=== PATIENT | female | born 1935 | race Caucasian/White ===

== ENCOUNTER 2016-10-16 09:45 | Outpatient (CLI) | payer MEDICARE, OTHER ==
--- NOTE | 2016-10-16 14:17 | Ultrasound Report ---
LEFT BREAST ULTRASOUND: 10/16/2016 CLINICAL INDICATION: Tender mass outer left breast. TECHNIQUE: Real-time scanning was performed with telesales representative static images obtained. FINDINGS: Ultrasound of the tender palpable abnormality identified by the patient was performed. At this site, there is a 2.0 x 1.3 x 1.1 cm hypoechoic irregular nodule, with some vascularity and po sterior acoustic shadowing. The appearance is suspicious. Scanning of the left axilla does demonstrat e an abnormal 9 x 8 x 6 mm node. Sampling of both the palpable abnormality and left axillary node is recommended. IMPRESSION: SUSPICIOUS ABNORMALITIES. RECOMMENDATION: THE PALPABLE ABNORMALITY APPEARS AMENABLE TO ULTRASOUND-GUIDED CORE NEEDLE BIOPSY. CO NTEMPORANEOUS SAMPLING OF THE PROMINENT LEFT AXILLARY LYMPH NODE IS ALSO RECOMMENDED. BIRADS CATEGORY 4-SUSPICIOUS ABNORMALITY. Results and recommendations were discussed with the patient at the time of the examination, and pacheco d to the office of [facility], on 10/16/2016. Biopsy is scheduled for 10/23/2016 at 9:45 a.m. JOB #: [id number] EXT JOB #:
--- NOTE | 2016-10-16 16:25 | Mammography Report ---
DIGITAL DIAGNOSTIC BILATERAL MAMMOGRAM: 10/16/2016 CLINICAL INDICATION: Tender palpable abnormality left outer breast. The patient's previous mammograms were somewhere in [place] many years ago. This will serve as a n ew baseline. TECHNIQUE: Bilateral CC and MLO views, bilateral laterally exaggerated craniocaudal views, left true lateral view. FINDINGS: The breasts demonstrate scattered fibroglandular densities bilaterally. In the left upper outer posterior breast, correlating with the palpable abnormality, there is a 2 cm density, with some irregular margins. Additionally, there is a prominent left axillary lymph node noted. No mammographi maycol suspicious findings are seen in the right breast. Coarse, typically benign calcifications are p resent. Please also refer to left breast ultrasound of the same day. IMPRESSION: SUSPICIOUS ABNORMALITY, WITH A SOLID NODULE ON ULTRASOUND CORRELATING WITH THE MAMMOGRAP HIC ABNORMALITY AND A PROMINENT LEFT AXILLARY LYMPH NODE. RECOMMENDATION: BIOPSY. THE NODULE APPEARS AMENABLE TO ULTRASOUND-GUIDED CORE NEEDLE BIOPSY. CONTEMPO RANEOUS SAMPLING OF THE LEFT AXILLARY LYMPH NODE IS ALSO RECOMMENDED. BIRADS CATEGORY 4-SUSPICIOUS ABNORMALITY. Results and recommendations discussed with the patient at the time of the examination, and called to [facility], on 10/16/2016. Biopsy is scheduled for 10/23/2016 at 9:45 a.m. STANDARD QUALIFYING STATEMENTS 1. This examination was reviewed with the aid of Computer-Aided Detection (CAD). 2. A negative or benign imaging report should not delay biopsy if clinically suspicious findings are present. Consider surgical consultation if warranted. More than 5% of cancers are not identified by i samreen. 3. Dense breasts may obscure an underlying neoplasm. JOB #: [id number] EXT JOB #:[id number]
== END 2016-10-16 09:46 | disposition home or self-care (01) ==
LOC: DI 09:45
PROVIDERS: ATTEND Nurse Practitioner Family
DX: N63 Unspecified lump in breast (principal); R59.0 Localized enlarged lymph nodes
CPT/HCPCS: 76642; G0204; 77066

== ENCOUNTER 2016-10-23 08:45 | Outpatient (CLI) | payer MEDICARE, OTHER ==
--- NOTE | 2016-10-23 13:09 | Ultrasound Report ---
CORE BIOPSY OF THE LEFT BREAST UNDER ULTRASOUND GUIDANCE: 10/23/2016 CLINICAL HISTORY: The patient has a known palpable mass at the 3 o'clock position of the left breast. FINDINGS: A PAR conference was held and an informed consent was obtained. The patient's left breast was sterilely prepped with Betadine and Chloraprep. Sterile technique was used throughout the exam. 10 mL of 1% buffered Xylocaine was placed in the skin and subcutaneous tissues of the breast. 8 mL of 1% Xylocaine with epinephrine was placed in the skin and subcutaneous tissues of the left breast. A small skin incision was made with a #11 scalpel. With a clamp , the tissues down to the lesion were softened. Under ultrasound guidance, using a Tourjivegic coaxial 14-gauge biopsy needle, three core biopsies were obtained of the lesion in question. The first core biopsy was excellent. The second core biopsy was minimal. The third core biopsy was satisfactory. These biopsy specimens were placed in formalin. The patient had so much pain with the biopsy that she would not allow a surgical clip to be placed in the lesion. Following the biopsy, the incision site was cleansed with Chloraprep, covered with a 4x4 and Tegaderm. IMPRESSION: CORE BIOPSY OF A PALPABLE MASS AT THE 3 O'CLOCK POSITION OF THE LEFT BREAST UNDER ULTRASOUND GUIDANCE. ONE EXCELLENT CORE BIOPSY SPECIMEN WAS OBTAINED AND ONE ADEQUATE CORE BIOPSY SPECIMEN WAS OBTAINED THESE CORES WERE PLACED IN FORMALIN. BECAUSE THE PATIENT ENCOUNTERED PAIN WITH THE BIOPSY, SHE DECIDED NOT TO ALLOW A SURGICAL CLIP TO BE PLACED AT THE SITE OF THE BIOPSY. JOB #: [id number] EXT JOB #: [id number]
--- NOTE | 2016-10-23 13:17 | Ultrasound Report ---
NEEDLE ASPIRATION BIOPSY UNDER ULTRASOUND GUIDANCE OF AN ENLARGED LYMPH NODE IN THE TAIL OF THE LEFT BREAST: 10/23/2016 CLINICAL HISTORY: The patient has a palpable left breast mass in the 3 o'clock position and an enlarg ed lymph node in the tail of the left breast left axilla. FINDINGS: A PAR conference was held and informed consent was obtained. The patient's left breast and axillary region were sterilely prepped and draped with Betadine and Chloraprep. Sterile technique wa s used throughout the exam. Under ultrasound guidance, the enlarged lymph node in the tail of the lef t breast was localized and two needle aspiration biopsies under ultrasound guidance with a 22-gauge 1 .5-inch, biopsy needle was done. The needle aspiration samples that were obtained were placed into cy tosine solution and sent for pathological analysis. The needle aspiration biopsy was done because the patient was very hesitant to undergo a core biopsy of this lymph node. She encountered too much pain with the core biopsy of the palpable breast mass immediately preceding this aspiration biopsy to all ow a core biopsy of the lymph node in question. IMPRESSION: NEEDLE ASPIRATION BIOPSY UNDER ULTRASOUND GUIDANCE WAS DONE OF AN ENLARGED LYMPH NODE IN THE TAIL OF THE LEFT BREAST LEFT AXILLA. JOB #: [id number] EXT JOB #:[id number]
[2016-10-23 13:55] VITALS: BP 118/59
[2016-10-23] MEDS ORDERED: BUFFERED LIDOCAINE 10 ML SYRINGE IU ONE (17:19)
[2016-10-23] MEDS ORDERED: BUPIVACAINE 0.5%-EPI 1:200000 PF 30 ML VIAL SUBQ ONE (17:19)
== END 2016-10-23 08:46 | disposition home or self-care (01) ==
LOC: DI 08:45
PROVIDERS: ATTEND Nurse Practitioner Family
DX: C50.612 Malignant neoplasm of axillary tail of left female breast (principal); Z17.1 Estrogen receptor negative status [ER-]; R59.0 Localized enlarged lymph nodes
CPT/HCPCS: 10022; 19083; 76942; 88173; 88305; 88360

== ENCOUNTER 2017-02-24 09:24 | Outpatient (CLI) | payer MEDICARE, OTHER ==
--- NOTE | 2017-02-25 08:21 | XRAY Report ---
TWO-VIEW CHEST: 02/24/2017 COMPARISON STUDY: None. INDICATION: Cough. FINDINGS: Right thoracic port is noted with the tip overlying the superior vena cava. There is focal patchy opacity about the left lower lobe. No pneumothorax or pleural effusion. Mediastinum appears otherwise unremarkable. IMPRESSION: PATCHY OPACITY ABOUT THE LEFT LOWER LOBE SUGGESTS PNEUMONIA. CORRELATE CLINICALLY. JOB #: [id number] EXT JOB #:[id number]
== END 2017-02-24 09:25 | disposition home or self-care (01) ==
LOC: DI.S 09:24
PROVIDERS: ATTEND Nurse Practitioner Family
DX: R91.8 Other nonspecific abnormal finding of lung field (principal); Z95.828 Presence of other vascular implants and grafts
CPT/HCPCS: 71020

== ENCOUNTER 2017-03-23 10:03 | Outpatient (CLI) | payer MEDICARE, OTHER ==
--- NOTE | 2017-03-23 12:32 | XRAY Report ---
TWO VIEW CHEST: 03/23/2017 CLINICAL INDICATION: Pneumonia. COMPARISON: 02/24/2017. FINDINGS: Frontal and lateral views of the chest demonstrate a normal cardiac silhouette. The right jugular port is stable. The previously seen patchy left basilar infiltrate has resolved. No effusion or pneumothorax is present. IMPRESSION: RESOLUTION OF PATCHY LEFT BASILAR INFILTRATE. JOB #: [id number] EXT JOB #:[id number]
== END 2017-03-23 10:04 | disposition home or self-care (01) ==
LOC: DI.S 10:03
PROVIDERS: ATTEND Physician Assistant
DX: J18.9 Pneumonia, unspecified organism (principal)
CPT/HCPCS: 71020

== ENCOUNTER 2017-12-16 11:32 | Outpatient (CLI) | payer MEDICARE, OTHER ==
--- NOTE | 2017-12-16 13:53 | XRAY Report ---
Procedure Date: 12/16/2017 Accession Number: [id number] / [id number] Procedure: XRS - Chest 2 View X-Ray CPT Code: 40105 FULL RESULT: EXAM: CHEST RADIOGRAPHY EXAM DATE: 12/16/2017 12:03 PM. CLINICAL HISTORY: Bronchitis. COMPARISON: Chest 2 view PA/LAT 03/23/2017 10:16 AM. TECHNIQUE: 2 views. FINDINGS: Lungs/Pleura: Lung volumes are decreased compared to the previous exam. There is no lobar consolidation. There is no pleural effusion or pneumothorax. Mediastinum: Heart and mediastinal contours are unremarkable. Other: Interval removal of a central venous port. Degenerative changes of the right humeral head. No surgical clips projecting over the left breast. IMPRESSION: Decreased lung volumes with no acute cardiopulmonary abnormality. RADIA
== END 2017-12-16 11:33 | disposition home or self-care (01) ==
LOC: DI.S 11:32
PROVIDERS: ATTEND Family Medicine
DX: J20.9 Acute bronchitis, unspecified (principal)
CPT/HCPCS: 71046

== ENCOUNTER 2018-04-14 14:26 | Outpatient (CLI) | payer MEDICARE, OTHER | END 2018-04-14 14:27 | disposition home or self-care (01) | LOC: SC 14:26 | PROVIDERS: ATTEND Nurse Practitioner Family | DX: G47.33 Obstructive sleep apnea (adult) (pediatric) (principal) | CPT/HCPCS: 99204; G0463; 99212 ==

== ENCOUNTER 2018-05-07 19:33 | Outpatient (CLI) | payer MEDICARE, OTHER | END 2018-05-07 19:34 | disposition home or self-care (01) | LOC: SC 19:33 | PROVIDERS: ATTEND Internal Medicine Pulmonary Disease | DX: R06.83 Snoring (principal); G47.61 Periodic limb movement disorder | CPT/HCPCS: 95810 ==

== ENCOUNTER 2018-08-27 13:11 | Outpatient (CLI) | payer MEDICARE, OTHER ==
--- NOTE | 2018-08-27 15:09 | XRAY Report ---
Reason: PAIN RIGHT LEG RIGHT ANKLE Procedure Date: 08/27/2018 Accession Number: [id number] / [id number] Procedure: XR - Ankle 3 View RT CPT Code: FULL RESULT: EXAM: RIGHT ANKLE RADIOGRAPHY EXAM DATE: 08/27/2018 02:03 PM. CLINICAL HISTORY: Pain right leg, right ankle. COMPARISON: None. TECHNIQUE: 3 views. FINDINGS: Bones: The bones are qualitatively osteopenic; this limits evaluation for underlying fractures or masses. No fracture is detected. Joints: Normal. No effusion. No subluxations. The ankle mortise is normally aligned. Soft Tissues: Normal. No soft tissue swelling. IMPRESSION: Osteopenia with no fracture or dislocation detected. RADIA
--- NOTE | 2018-08-27 15:11 | XRAY Report ---
Reason: RT KNEE ANKLE PAIN Procedure Date: 08/27/2018 Accession Number: [id number] / [id number] Procedure: XR - Knee 3 View RT CPT Code: FULL RESULT: EXAM: RIGHT KNEE RADIOGRAPHY EXAM DATE: 08/27/2018 02:03 PM. CLINICAL HISTORY: Right knee, ankle pain. COMPARISON: None. TECHNIQUE: 3 views. FINDINGS: Bones: The bones are qualitatively osteopenic; this limits evaluation for underlying fractures or masses. No fracture detected. Joints: There is moderate joint space narrowing of the medial compartment. No joint effusion. No subluxation. Soft Tissues: Mild calcifications of the popliteal artery. IMPRESSION: Osteopenia and degenerative changes as described. RADIA
== END 2018-08-27 13:12 | disposition home or self-care (01) ==
LOC: DI 13:11
PROVIDERS: ATTEND Nurse Practitioner Family
DX: M17.11 Unilateral primary osteoarthritis, right knee (principal); M85.861 Other specified disorders of bone density and structure, right lower leg

== ENCOUNTER 2020-05-21 10:05 | Day surgery (SDC) | payer MEDICARE, OTHER ==
[2020-05-21] MEDS ORDERED: LACTATED RINGERS 1,000 ML IV ONE (10:15)
[2020-05-21] MEDS ORDERED: ceFAZolin 2 GM/50 ML 2 GM/50 ML BAG IV ONE (10:45)
[2020-05-21 11:27] LABS: C. PNEUMONIAE- RESP PCR PANEL NOT DETECTED
[2020-05-21] MEDS ORDERED: LIDOCAINE 2%-EPI 1:100000 20 ML MDV SUBQ ONE ×2 (12:02)
[2020-05-21] MEDS ORDERED: BUPIVACAINE 0.5% PF 30 ML VIAL INFIL ONE ×2 (12:02)
[2020-05-21] MEDS ORDERED: SODIUM CHLORIDE 0.9% 10 ML ONE (12:09)
[2020-05-21] MEDS ORDERED: LIDOCAINE 2%-EPI 1:100000 20 ML MDV ONE (12:09)
[2020-05-21] MEDS ORDERED: BUPIVACAINE 0.5% PF 30 ML VIAL ONE (12:09)
[2020-05-21] MEDS ORDERED: PROPOFOL 500 MG/50 ML 500 MG/50 ML VIAL ONE (12:19)
--- NOTE | 2020-05-21 12:38 | ANESTHESIA ---
Pre-Anesthesia VS, & Labs - Diagnosis breast cancer - Procedure port placement Vital Signs: Temp Pulse Resp BP Pulse Ox 36.5 C 68 14 105/68 96 05/21/20 11:10 05/21/20 11:10 05/21/20 11:10 05/21/20 11:10 05/21/20 11:10 Height: 5 ft 2 in Weight (kg): 56.8 kg Body Mass Index: 22.8 BMI Classification: Healthy weight - NPO >8 hours - Is Patient ?: No Home Medications and Allergies Cholecalciferol (Vitamin D3) [Vitamin D3] 10 mcg PO DAILY 05/18/20 Multivitamin [Daily Multiple Vitamin] 1 each PO DAILY 05/18/20 Ondansetron [Ondansetron Odt] 8 mg PO Q8HR PRN 05/18/20 Allergies/Adverse Reactions: Allergies Allergy/AdvReac Type Severity Reaction Status Date / Time No Known Drug Allergies Allergy Verified 05/18/20 11:54 Anes History & Medical History - Anesthetic History Anesthesia Complications: reports: No previous complications - Medical History Cardiovascular: reports: None Pulmonary: reports: None Gastrointestinal: reports: None Urinary: reports: None Musculoskeletal: reports: None Endocrine/Autoimmune: reports: None Skin: reports: None History of Cancer?: No - Surgical History Orthopedic: Knee replacement Exam General: Alert Dental: WNL Mouth Opening: Can't Open Mouth Neck Mobility: Normal Mallampati classification: II Thyromental Distance: greater than 6 cm Respiratory: Lungs clear Cardiovascular: Regular rate Mental/Cognitive Status: Alert/Oriented X3 Plan Anesthesia Type: MAC Consent for Procedure(s) Verified and Reviewed: Yes Code Status: Attempt Resuscitation ASA classification: 2-Mild systemic disease Is this case an emergency?: No
--- NOTE | 2020-05-21 13:41 | OPERATIVE REPORT ---
Operative Report - General Procedure Date: 05/21/20 Planned Procedure: Right subclavian port placement Pre-Op Diagnosis: Recurrent metastatic breast cancer Procedure Performed: Right subclavian port placement Post Op Diagnosis: Recurrent metastatic breast cancer - Procedure Note Primary Surgeon: Mary Anesthesia Provider: KOREY Guerrero Anesthesia Technique: Local, MAC Estimated Blood Loss (mL): 5 Findings: Port in good position in the SVC Complications: None apparent - Other Other Information/Narrative: After obtaining informed consent, the patient is brought to the operating room and placed in supine position on the operating table. Following successful induction of sedation with monitored anesthesia care and appropriate padding of all bony prominences, the left chest and neck were prepped and draped in the standard surgical fashion. A timeout was held per scope protocol. All elements of the surgical safety checklist were followed before, during, and after the procedure. Following infiltration with local anesthetic to create a field block, the right subclavian vein was accessed in the deltopectoral groove. The J-wire was gently placed into the vein. Fluoroscopy was used to confirm the position of the wire and in the subclavian vein. We anesthetized the existing healed scar in the area around it for placement of the port itself. An incision was created here and carried down through the skin and subcutaneous tissue. A pocket was created with blunt dissection. The port tubing was attached to the tunneling device and passed from the access site of the vein into the pocket. It was trimmed to an appropriate length and the port attached. The port was sewn into place in the pocket. The dilator and introducer were then passed over the J-wire that was in the subclavian vein. The J-wire and dilator were removed leaving only the introducer. The tubing was then passed through the introducer and the introducer cracked and removed per senior program planner's directions. The port was then checked for function and flushed and purvi easily. Additional local anesthetic was applied to the chest wall. The port pocket was closed with interrupted Vicryl sutures and Monocryl stitches were placed in both skin incision sites. All sponge, needle, and instrument counts were correct at the conclusion of the case. Chest x-ray in the postanesthesia care unit revealed the port in good position in the superior vena cava without evidence of pneumothorax.
[2020-05-21] MEDS ORDERED: SODIUM CHLORIDE 0.9% 200 ML IV ONE (13:52)
[2020-05-21 14:25] VITALS: BP 120/61
--- NOTE | 2020-05-21 15:00 | XRAY Report ---
PROCEDURE: Post Port Placement 1V CXR INDICATIONS: RIGHT PORT TECHNIQUE: One view of the chest was acquired. FINDINGS: Surgical changes and devices: Port-A-Cath has been placed from right-sided approach extending into th e distal SVC. Lungs and pleura: No pleural effusions or pneumothorax. Lungs are abnormal, with an interstitial pr ominence perhaps reflecting a prior smoking history. Cardiomegaly and acute CHF is not found. Focal r adiodensity is seen at the left lower lobe with the elevation of the left hemidiaphragm mild in sever ity but contributing to lung base atelectasis.. Mediastinum: Mediastinal contours appear normal. Heart size is normal. Bones and chest wall: No suspicious bony lesions. Overlying soft tissues appear unremarkable. IMPRESSION: No pneumothorax after Port-A-Cath placement with tip in normal position. Interstitial prominence, pos sible prior smoking history. Right lower lung appears clear, left lower lobe appears mildly infiltrat ed potentially by pneumonia. Mild elevation of the left diaphragm. Reviewed by: Gustavo Chinchilla MD on 05/21/2020 2:58 PM PST Approved by: Gustavo Chinchilla MD on 05/21/2020 2:58 PM PST Station ID: [id number]
--- NOTE | 2020-05-21 15:09 | XRAY Report ---
PROCEDURE: OR Port-A-Cath INDICATIONS: PORT PLACEMENT TECHNIQUE: Intraoperative evaluation during the placement of Port-A-Cath was performed. COMPARISON: Port-A-Cath catheter from right-sided approach is seen extending into the expected positi on of the distal SVC. FINDINGS: Intraoperative evaluation showing expected course of the Port-A-Cath catheter, prior to termination o f the procedure. IMPRESSION: Normal intraoperative Port-A-Cath positioning. Reviewed by: Gustavo Chinchilla MD on 05/21/2020 3:08 PM PST Approved by: Gustavo Chinchilla MD on 05/21/2020 3:08 PM PST Station ID: [id number]
--- NOTE | 2020-05-21 15:30 | ANESTHESIA POST OP EVALUATION ---
Anesthesia Post Eval - Post Anesthesia Eval Vitals: Last Vital Signs Temp 36.8 C 05/21/20 14:15 Pulse 74 05/21/20 14:15 Resp 16 05/21/20 14:15 BP 120/61 05/21/20 14:15 Pulse Ox 98 05/21/20 14:15 CV Function Including HR & BP: positive: Stable Pain Control: positive: Satisfactory Nausea & Vomiting: positive: Negative Mental Status: positive: Patient Participates Respiratory Status: Airway Patent Hydration Status: Satisfactory
== END 2020-05-21 10:06 | disposition home or self-care (01) ==
LOC: SDS 10:05
PROVIDERS: ATTEND Surgery
DX: C50.911 Malignant neoplasm of unspecified site of right female breast (principal); C50.912 Malignant neoplasm of unspecified site of left female breast; Z20.822 Contact with and (suspected) exposure to COVID-19
CPT/HCPCS: 36561; 71045; 87631; C1788; J0690; J7120; 0202U

== ENCOUNTER 2020-06-01 14:30 | Outpatient (CLI) | payer MEDICARE, OTHER ==
--- NOTE | 2020-06-01 18:38 | CONSULTATION NOTE ---
Palliative Care Consultation - Referral Referring Provider: Dr. Rnad Foote Time of Visit: [id number] [place] [facility] [place] Reason: Met Breast Ca/Constipation - Information Sources Records reviewed: Previous records reviewed History/Review of Systems obtained from: Patient, Family (daughter Earline) Exam limitations: No limitations - History of Present Illness Brief History of Present Illness: This is an 84-year-old woman who has had 3 episodes now of breast cancer. 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 Unfortunately her PET/CT scan has evidence of metastasis, and she is receiving chemotherapy PET/CT 04/18/2020 showed multiple hypermetabolic mediastinal and bilateral hilar lymph nodes, and several hypermetabolic left axillary lymph nodes. And an ill-defined hypermetabolic thickening involving the left pectoralis is muscular image. She does have a palpable small 1 cm node on exam, plus tenderness in her left axilla. She is receiving her third round of chemotherapy, she has next week off. She is currently receiving today paclitaxel and atezolezumab. She has had persistent and accumulating fatigue, as well as difficulty with constipation. She denies any nausea, is eating less than her norm, but has been eating 3 meals a day. She does feel she is getting adequate calories. Patient also has history of right breast IDC [id number] ER/MR [place] positive in August 2018, she did receive a right lumpectomy, and was started on endocrine therapy, received adjuvant radiation therapy on right breast. She has been less than compliant with her anastrozole, and a DEXA scan in March 2019 also showed osteopenia. Patient was encouraged to restart calcium/vitamin D supplementation. Her original diagnosis was in left breast IDC pT2 N1 M0 (stage IIb (triple negative, she received neoadjuvant TC x4, completed 01/23/2017. She went on to get a left lumpectomy/sentinel load biopsy, with residual disease including 5 out of 6 lymph nodes positive. She did receive capecitabine for 2 cycles, though this was discontinued because of intolerance. She did get adjuvant left breast cancer radiation therapy. Patient reports otherwise she is in fairly good health, though she does appears slightly thin, and pale today. She does have some kyphosis/scoliosis, but denies any pain or discomfort other than her left axilla with palpation. Medical/Surgical History - Past Medical History Cardiovascular: reports: None Respiratory: reports: None BUSINESS OFFICE COORDINATOR: reports: Breast cancer Musculoskeletal: reports: Osteopenia Derm: reports: Herpes zoster MRSA Hx?: No - Past Surgical History Ortho: reports: Knee replacement /BUSINESS OFFICE COORDINATOR: reports: Other (bilateral lumpectumy left 2017; right 2018) Cardiovascular: reports: Other (portacath 05/21) Social History - Living Situation Living arrangement: At home Living Situation: With family Support System: Patient had been living independently up to her first diagnosis of breast cancer. Her about 6 to 7 years ago, he was almost 20 years older than her. They had combined family, with multiple children. She lives currently with her daughter, has lived with her since 2017. [place], with her daughter her , 2 children and 2 foster children. She is building a house currently, and is going to live with her granddaughter when completed. She is a Jainism, and did provide her DURABLE POWER OF SHREDDING MACHINE KNIFE CHANGER for healthcare for no blood. Family History - Family History Family History: Mother: , Father: , Sister: Alive and Well Medications/Allergies - Medications Home Medications: Ambulatory Orders Medication Instructions Recorded Confirmed Cholecalciferol (Vitamin D3) 10 mcg PO DAILY 05/18/20 06/04/20 [Vitamin D3] Multivitamin [Daily Multiple 1 each PO DAILY 05/18/20 06/04/20 Vitamin] Ondansetron [Ondansetron Odt] 8 mg PO Q8HR PRN 05/18/20 06/04/20 Lidocaine/Prilocain 2.5% Cream 5 applic TOP BID #1 tube 05/21/20 06/04/20 [Emla 2.5% Cream] Senna [Senokot] 1 - 2 tab PO DAILY PRN MDD 6 tabs 06/04/20 06/04/20 polyethylene glycoL 3350 [Miralax] 17 gm PO DAILY MDD titrate to 06/04/20 0 06/04/20 effect - Allergies Allergies/Adverse Reactions: Allergies Allergy/AdvReac Type Severity Reaction Status Date / Time No Known Drug Allergies Allergy Verified 05/18/20 11:54 Review of Systems - Constitutional Constitutional: reports: Fatigue (persistent since beginning treatment), Weakness, Weight loss. denies: Fever, Chills - Ears, Nose & Throat Ears, Nose & Throat: reports: Dry mouth - Cardiovascular Cardiovascular: reports: Decr. exercise tolerance. denies: Chest pain, Edema - Respiratory Respiratory: denies: Cough, SOB at rest - Gastrointestinal Gastrointestinal: reports: Abdominal pain, Constipation, Poor appetite, Early satiety - Genitourinary Genitourinary: reports: Urgency. denies: Incontinence - Musculoskeletal Musculoskeletal: reports: Stiffness, Muscle weakness - Integumentary Integumentary: reports: Dryness, Hair changes - Neurological Neurological: reports: General weakness. denies: Headache - Psychiatric Psychiatric: reports: Anxiety. denies: Depression - Hematologic/Lymphatic Hematologic/Lymph: Other (is Jehovahs Witness/no blood products) - All Other Systems All Other Systems: reports: Reviewed and negative Physical Exam - Vital Signs Temperature: 97.7 C Pulse Rate: 77 Respiratory Rate: 16 Blood Pressure: 101/53 - Physical Exam General Appearance: positive: No acute distress, Alert, Other (small palpable 1 cm node found in left axilla; area tender to touch) Eyes Bilateral: positive: Normal inspection ENT: positive: No signs of dehydration Neck: positive: Trachea midline. negative: Lymphadenopathy (R), Lymphadenopathy (L) Cardiovascular: positive: Regular rate & rhythm Respiratory: positive: No respiratory distress, Breath sounds nml, Diminished in bases Abdomen: positive: Soft, Tenderness Skin: positive: Pallor, Other (new portacath) Extremities: positive: No pedal edema Neurologic/Psychiatric: positive: Oriented x3, Mood/affect nml, Flat affect Palliative Care - POLST Patient has POLST: No Constipation: Yes, Unmanaged Performance Status: Patient has been independent in her ADLs, though has had decreased activity tolerance. She used to walk around the farm, now is mostly just in the house. She reports this is because of persistent fatigue, and muscle weakness. - Palliative Care Discussion: Kevinunately with her transition from Oscar, who would be health if not seeing the oncologist and are not due to see him for 2 weeks. She is hoping for improvement of her fatigue, and very focused on her constipation. We did discuss in the context of her current situation, would recommend we get her DURABLE POWER OF SHREDDING MACHINE KNIFE CHANGER solidified with Earline as her decision maker, given their shared believes, provided 5 wishes for further discussion.h patient and daughter seem somewhat elusive regarding goals of care regarding the treatment. We did discuss she has metastatic disease, though in this setting can continue to have supportive treatment for managing disease, though is not curative treatment. Impression and Recommendations - Palliative Care Impression: This is an 84-year-old woman with recurrent metastatic breast cancer, receiving chemotherapy. She presents today with persistent and limiting fatigue, as well as constipation. Palliative care introducing role on team, including help with assistance in management of symptoms, advanced care planning, and anticipatory guidance. Recommendations/Counseling Done: 1. Constipation, most likely chemotherapy-induced. Patient has been instructed to initiate MiraLAX 17 g daily/1 capful with 4 ounces of fluid. To decrease if too loose to half capful, and if no BM can increase to twice a day for 48 hours with no BM. Also introduce senna concentrate 8.6, 2-3 tabs of MiraLAX not effective, in 72 hours. Reviewed both with daughter and patient, verbalized understanding. Instructed to DC DOS S. 2. Weight loss. Patient currently managing with small meals, but has had weight loss overall the last few years. Patient does appear quite thin, at high risk for further decline. Reset goal for no further weight loss, encourage small frequent meals and snacks, and adequate hydration. 3. Advanced care planning. We will follow up after oncology appointment regarding goals of care. Will reach out for prognostic/treatment goals. Provided DURABLE POWER OF SHREDDING MACHINE KNIFE CHANGER for healthcare, as well as collected DURABLE POWER OF SHREDDING MACHINE KNIFE CHANGER for healthcare for no blood. We will continue to explore goals of care with patient and family, demonstrating need for further understanding of goals for treatment plan. Will follow up with oncology. Time Spent: 60 minutes with greater than 50% of this done in counseling, setting of rapport, counseling regarding the role of palliative care, and anticipatory guidance
== END 2020-06-01 14:31 | disposition home or self-care (01) ==
LOC: PC 14:30
PROVIDERS: ATTEND Nurse Practitioner Adult Health
DX: Z51.5 Encounter for palliative care (principal); C50.912 Malignant neoplasm of unspecified site of left female breast; Z79.899 Other long term (current) drug therapy; Z85.3 Personal history of malignant neoplasm of breast; M85.80 Other specified disorders of bone density and structure, unspecified site; C77.9 Secondary and unspecified malignant neoplasm of lymph node, unspecified; R53.83 Other fatigue; K59.00 Constipation, unspecified; R63.4 Abnormal weight loss
CPT/HCPCS: 99205

== ENCOUNTER 2020-06-29 15:07 | Outpatient (CLI) | payer MEDICARE, OTHER ==
--- NOTE | 2020-06-29 17:33 | CONSULTATION NOTE ---
Palliative Care Follow Up - Referral Referring Provider: Dr. Rand Foote Time of Visit: [id number] Referral setting: [facility] Referral Reason: Anxiety/Wt. Loss/Recurrent Met Breast CA - Information Sources Records reviewed: Previous records reviewed History/Review of Systems obtained from: Patient, Family (daughter Earline present) Exam limitations: Clinical condition (patient with STM deficits) - History of Present Illness Update Brief HPI Update: This is an 84-year-old woman who presents with recurrent metastatic triple negative breast cancer, mets to lymph nodes in left axilla and left lung. She is receiving Atezolizumab and Paclitaxel, and thus far has been doing fairly well. She does have some numbness at the tips of her fingers, and her fatigue has improving. She reports her weight has been stable at 125, remains quite thin but feels like is eating and drinking adequate amounts of food and fluids. Her daughter confirms this though does feel she needs to be reminded to eat at times. Her constipation is currently under control, and she presents is bright and engaged today. Past Medical History: History of right breast cancer August 2018, with bilateral ectomy and endocrine therapy, as well as adjuvant radiation, osteopenia, left breast cancer in 2016, received neoadjuvant TC x4, with left lumpectomy, sentinel node biopsy with residual disease including 5 out of 6 positive nodes and radiation. Knee replacement and portacath Social History - Living Situation Living arrangement: At home Living Situation: With family Support System: Patient had been living independently up to her first diagnosis of breast cancer in 2017, her about 6 or 7 years ago. They had a combined family with multiple children, she currently lives with her daughter Earline, since 2016. They live on a [place] farm, her daughter and her and 2 children and 2 foster children, it is quite a busy household. She is currently building a house and is going to live there with her granddaughter when completed. She is a Sikhism, and does not accept blood transfusions Medications/Allergies - Medications Home Medications: Ambulatory Orders Medication Instructions Recorded Confirmed Cholecalciferol (Vitamin D3) 10 mcg PO DAILY 05/18/20 06/15/20 [Vitamin D3] Multivitamin [Daily Multiple 1 each PO DAILY 05/18/20 06/15/20 Vitamin] Ondansetron [Ondansetron Odt] 8 mg PO Q8HR PRN 05/18/20 06/15/20 Lidocaine/Prilocain 2.5% Cream 5 applic TOP BID #1 tube 05/21/20 06/15/20 [Emla 2.5% Cream] Senna [Senokot] 1 - 2 tab PO DAILY PRN MDD 6 tabs 06/04/20 06/15/20 polyethylene glycoL 3350 [Miralax] 17 gm PO DAILY MDD titrate to 06/04/20 06/15/20 effect - Allergies Allergies/Adverse Reactions: Allergies Allergy/AdvReac Type Severity Reaction Status Date / Time No Known Drug Allergies Allergy Verified 06/15/20 13:48 Review of Systems - Constitutional Constitutional: reports: Fatigue (improved), Weight stable (125) - Ears, Nose & Throat Ears, Nose & Throat: reports: Hearing loss (mild). denies: Mouth lesions - Cardiovascular Cardiovascular: reports: Decr. exercise tolerance - Respiratory Respiratory: reports: SOB with exertion. denies: Cough, SOB at rest - Gastrointestinal Gastrointestinal: reports: Constipation (intermittent; currently controlled), Nausea (controlled with ondansetron), Early satiety. denies: Vomiting, Reflux/heartburn - Musculoskeletal Musculoskeletal: reports: Stiffness, Muscle weakness - Integumentary Integumentary: reports: Dryness, Hair changes (thinning) - Neurological Neurological: reports: General weakness, Memory problems (mild) - Psychiatric Psychiatric: reports: Depression, Anxiety - Hematologic/Lymphatic Hematologic/Lymph: denies: Anemia, Recurrent infections - All Other Systems All Other Systems: reports: Reviewed and negative Physical Exam - Vital Signs Temperature: 36.3 C Pulse Rate: 76 Respiratory Rate: 18 Blood Pressure: 99/54 - Physical Exam General Appearance: positive: No acute distress, Alert Eyes Bilateral: positive: Normal inspection ENT: positive: No signs of dehydration Neck: positive: Trachea midline Cardiovascular: positive: Regular rate & rhythm Respiratory: positive: No respiratory distress, Breath sounds nml Abdomen: positive: Non-tender, Soft, Nml bowel sounds Skin: positive: Pallor, Dryness Extremities: positive: No pedal edema Neurologic/Psychiatric: positive: Oriented x3, Mood/affect nml, Weakness, Flat affect Palliative Care - POLST Patient has POLST: No Pain: No pain Tiredness/Fatigue: Severe (7-10) Drowsiness/Sedation: Severe (7-10) Nausea: Severe (7-10) Anorexia: Moderate (4-6) Dyspnea: Moderate (4-6) Depression: Moderate (4-6) Anxiety: Moderate (4-6) Feelings of wellbeing/Perceived Quality of Life: Good, Acceptable, Improved Sleep: Sleeps well Constipation: Yes, Intermittent constipation Performance Status: Patient is ambulatory, does use walker at times. She has had more energy over the last few days, does try and do loops in the house to keep her strength up. She is independent in her ADLs, her daughter does oversee meal prep and family supports her with transportation. She is able to shower independently. - Palliative Care Discussion: Patient perceives herself is doing fairly well overall, she does not have any significant anxiety, she is a Sikhism, and oncology trying to dose accordingly. She would like her daughter Earline house go to be her DPOA, they did not bring in her DPOA paperwork. We did discuss in the context of this, may be making arrangements to have completed at next appointment. I have unfortunately not met with the doctor yet, they are very curious as far as prognosis and implications for into the future. Patient feels well supported in her current situation. Feeling encouraged as her lymph node she can feel for herself, does seem to be decreasing in size. Results - Lab Results Lab results reviewed: Yes Impression and Recommendations - Palliative Care Impression: This is a 84 year old woman with recurrent metastatic breast cancer, her third round of breast cancer, receiving chemotherapy, she has improved fatigue, as well as improved constipation. She does feel like she is doing better with her appetite and eating. Palliative care providing support for symptom management, goal to complete advance care planning, and anticipatory guidance Recommendations/Counseling Done: 1. Constipation, most likely chemotherapy-induced. She has been titrating MiraLAX and senna, denies any further problems at this point time. 2. Weight loss. Patient currently managing with small meals, she eats with the family. Feels like she is doing better. May benefit from dietary consult, as they to try and eat natural, want to avoid supplements if possible. Encourage continue to focus on hydration, particularly if having weight loss, make those calorie laden drinks such as hot chocolate. 3. Recurrent metastatic breast cancer. Patient is currently receiving Paclitaxel and atezolezumab. She reports the fatigue was better this time around, does have some numbness in her fingers, but doing fairly well overall. 4. Dry skin. Patient had been using the surgical wash, extracted chemotherapy has significant side effects regarding skin, instructed to use a gentle soap, gentle shampoo, and to moisturize after bathing. Verbalized understanding, recommended Cetaphil/CeraVe 5. Advanced care planning. After much discussion, given the complexity of her current living situation, will make arrangements for DPOA documents at next visit 07/13 with scottary to complete. Will follow up with oncology regarding furt her prognostication, to assist with long-term and short-term goals 45 minutes with greater than 50% of this done in counseling regarding symptom management, advanced care planning, and anticipatory guidance
== END 2020-06-29 15:08 | disposition home or self-care (01) ==
LOC: PC 15:07
PROVIDERS: ATTEND Nurse Practitioner Adult Health
DX: Z51.5 Encounter for palliative care (principal); K59.00 Constipation, unspecified; R63.4 Abnormal weight loss; L85.3 Xerosis cutis; C50.919 Malignant neoplasm of unspecified site of unspecified female breast; C77.3 Secondary and unspecified malignant neoplasm of axilla and upper limb lymph nodes; C78.02 Secondary malignant neoplasm of left lung; Z17.1 Estrogen receptor negative status [ER-]; Z79.899 Other long term (current) drug therapy
CPT/HCPCS: 99215

== ENCOUNTER 2020-07-27 16:06 | Outpatient (CLI) | payer MEDICARE, OTHER ==
--- NOTE | 2020-07-27 16:18 | CONSULTATION NOTE ---
Palliative Care Follow Up - Referral Referring Provider: Dr. 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 She is receiving Abraxane and atezolizumab, so far is done fairly well. Her biggest complaint has been skin changes, though they do look improved from prior, as well as her alopecia. She has some mild numbness to the tips of her fingers, her fatigue has been improving, she reports she has had some weight gain and eating better. This is her third round of treatment with her breast cancers, and tends to be fairly passive. She is a Jain, her yovani brings her much comfort, but does admit to low-level pression. Patient has had her second Covid shot this last , and is hoping this will ease some of her social isolation. She does live in a busy household with her daughter, may in the future move into a house with her granddaughter. She does feel well supported, she denies any anxiety, tends to just defer all decision making to the oncologist. Past Medical History: Patient had neoadjuvant treatment for her initial breast cancer on left side, with left lumpectomy, with residual 5 out of 6 nodes, received radiation. 08/03 she had right breast cancer with right lumpectomy, and started endocrine surgery. As well as right breast radiation January 2019. 03/2020 recurrent metastatic breast cancer noted in her left axilla, with PET scan showing multiple hilar/perihilar/mediastinal nodes. She has osteopenia, knee replacement, and Port-A-Cath Social History - Living Situation Living arrangement: At home Living Situation: With family Support System: Had been living independently after her first diagnosis of breast cancer in 2017, her 6 to 7 years ago, with they had 10 children in combination. She currently lives with her daughter Earline, since 2017, on a small farm. Her daughter and her have 2 children and 2 foster children, is quite a busy household. Her daughter and she share Jain yovani, she is very close to her granddaughter where she is looking at building a house with. Medications/Allergies - Medications Home Medications: Ambulatory Orders Medication Instructions Recorded Confirmed Cholecalciferol (Vitamin D3) 10 mcg PO DAILY 05/18/20 06/15/20 [Vitamin D3] Multivitamin [Daily Multiple 1 each PO DAILY 05/18/20 06/15/20 Vitamin] Ondansetron [Ondansetron Odt] 8 mg PO Q8HR PRN 05/18/20 06/15/20 Lidocaine/Prilocain 2.5% Cream 5 applic TOP BID #1 tube 05/21/20 06/15/20 [Emla 2.5% Cream] Senna [Senokot] 1 - 2 tab PO DAILY PRN MDD 6 tabs 06/04/20 06/15/20 polyethylene glycoL 3350 [Miralax] 17 gm PO DAILY MDD titrate to 06/04/20 06/15/20 effect - Allergies Allergies/Adverse Reactions: Allergies Allergy/AdvReac Type Severity Reaction Status Date / Time No Known Drug Allergies Allergy Verified 06/15/20 13:48 Review of Systems - Constitutional Constitutional: reports: Fatigue (improved), Weight gain (128; 3 pounds over month) - Ears, Nose & Throat Ears, Nose & Throat: reports: Hearing loss (mild). denies: Mouth lesions - Cardiovascular Cardiovascular: reports: Decr. exercise tolerance - Respiratory Respiratory: reports: SOB with exertion. denies: Cough, SOB at rest - Gastrointestinal Gastrointestinal: reports: Early satiety, Good appetite. denies: Constipation (currently controlled), Nausea (controlled with ondansetron), Vomiting, Reflux/heartburn - Musculoskeletal Musculoskeletal: reports: Stiffness, Muscle weakness - Integumentary Integumentary: reports: Dryness, Hair changes ("duck down" alopecia) - Neurological Neurological: reports: General weakness, Memory problems (mild) - Psychiatric Psychiatric: reports: Depression - Hematologic/Lymphatic Hematologic/Lymph: denies: Anemia, Recurrent infections - All Other Systems All Other Systems: reports: Reviewed and negative Physical Exam - Vital Signs Temperature: 36.3 C Pulse Rate: 78 Respiratory Rate: 18 O2 Saturation: 97 Blood Pressure: 119/54 - Physical Exam General Appearance: positive: No acute distress, Alert Eyes Bilateral: positive: Normal inspection ENT: positive: No signs of dehydration Neck: positive: Trachea midline Cardiovascular: positive: Regular rate & rhythm Respiratory: positive: No respiratory distress, Breath sounds nml Abdomen: positive: Non-tender, Soft, Nml bowel sounds Skin: positive: Pallor, Dryness Extremities: positive: No pedal edema Neurologic/Psychiatric: positive: Oriented x3, Mood/affect nml, Weakness, Flat affect Palliative Care - POLST Patient has POLST: No Pain: Severity (1/10) Tiredness/Fatigue: Moderate (4-6) Drowsiness/Sedation: Moderate (4-6) Nausea: Mild (1-3) Anorexia: None Dyspnea: None Depression: Moderate (4-6) Anxiety: None Feelings of wellbeing/Perceived Quality of Life: Excellent, Acceptable, Improved Sleep: Sleeps well Constipation: Yes, Managed Performance Status: Patient is independent in her ADLs, she does walk short distances in the house. She has been doing some progressive ambulation as encouraged. I would put her at a PPS of 70% - Palliative Care Discussion: Patient is very pragmatic in her of approach this, she reports most people do not even lived to 83. She is hoping though for extended quality and quantity of life. We did discuss in the context of her current situation, her symptom burden is low, her fatigue is improving and she is feeling somewhat better. We did complete her DPOA today, with her daughter Earline avelar [phone] as her primary DPOA, with both her daughters as backup. Was able to enlist the notary and complete form. She does feel like she has enough support at this point, she has a good evangelical yovani that supports her in this journey. This is her third round, she is fairly passive. She says she just "trust what the doctors are doing for her". She has been , but still misses her . She reports is a busy household where she is, but feels like she has privacy and can check out if needs to. We did talk about the continuum of care, she did take care of her who was almost 20 years older than her at end-of-life. Counseling provided regarding addressing her questions about hospice and end-of-life care. She is hoping for the best, we also reviewed her current treatment schedule, the plan for ongoing monitoring, and treatment is for control of her disease not for cure. She was appreciative of the information and ability to ask questions. Results - Lab Results Lab results reviewed: Yes Impression and Recommendations - Palliative Care Impression: This is a quiet 84-year-old woman with recurrent metastatic breast cancer, her third round, currently receiving chemotherapy. She is having some persistent fatigue, but feels overall she is doing fairly well. She has had some weight gain, and no further issues with constipation, and low symptom burden. Palliative care providing support for symptom management, advanced care plan benjy, and anticipatory guidance. Recommendations/Counseling Done: 1. Depression. Patient does have some fluctuating mood, we did discuss its normal in response to what she is currently experiencing particularly with recurrent disease. Patient does feel like she has adequate social support, encouraged continued progressive ambulation, and engaging in her spiritual commu nity, she does feel she may have some more freedom with having received her second Covid shot. Her daughter is working very hard to keep her engaged and family sharing transportation and support. 2. Weight loss. Patient is doing better, she actually has gained 3 pounds, at this point in time and feels like she is doing well and does not need any further dietary support or counseling. 3. Recurrent metastatic breast cancer, patient is due for scans next Thursday, counseling provided regarding managing disease in the face of recurrent disease/serious illness. Daughter and patient with questions regarding treatment, addressed within scope. 4. Advanced care planning. Did complete DURABLE POWER OF BALL SORTER for healthcare, particular given the complexity of the multiple children. She does report she has met with water pollution scientist and has her end-of-life planning/fields done. We did discuss the continuum of care of serious illness, with hoping for the best, and reduce the continuum including palliative care support and the role of hospice at end-of-life. We will continue to explore goals of care, as building rapport. 60 minutes review of records, performing exam, counseling with patient and family, coordination of care with oncology team.
== END 2020-07-27 16:07 | disposition home or self-care (01) ==
LOC: PC 16:06
PROVIDERS: ATTEND Nurse Practitioner Adult Health
DX: Z51.5 Encounter for palliative care (principal); F32.9 Major depressive disorder, single episode, unspecified; C50.919 Malignant neoplasm of unspecified site of unspecified female breast; Z17.1 Estrogen receptor negative status [ER-]; C77.3 Secondary and unspecified malignant neoplasm of axilla and upper limb lymph nodes; C78.02 Secondary malignant neoplasm of left lung
CPT/HCPCS: 99215

== ENCOUNTER 2020-09-14 14:45 | Outpatient (CLI) | payer MEDICARE, OTHER ==
--- NOTE | 2020-09-14 17:34 | CONSULTATION NOTE ---
Palliative Care Follow Up - Referral Referring Provider: Dr. Rand Foote Time of Visit: 1445 45 minutes Referral setting: [facility] Referral Reason: Anxiety/Fatigue/Recurrent Met Breast CA - Information Sources Records reviewed: RN notes reviewed, Previous records reviewed History/Review of Systems obtained from: Patient Exam limitations: Clinical condition (patient with some STM deficits) - History of Present Illness Update Brief HPI Update: This is a ivan 84-year-old woman who has recurrent triple negative breast cancer, with mets to lymph nodes in left axilla. She is currently getting Abraxane and and Atezolizumab has recently had scans on 08/20 with no increase in metastatic disease. She does have a chronic left rib fracture and T11 compression fracture, and noted distal abdominal aortic aneurysm measuring 2.7 x 3.2 cm. She has done fairly well, with persistent fatigue, alopecia, and mild n umbness to the tips of her finger. She has had some gaining in weight, reports low level anxiety but denies depression today. Patient reports overall she is doing fairly well, she does understand the seriousness of her illness, though is expecting a good outcome, she has been treated for breast cancer previously. She and her daughter share Evangelical yovani, which is very comforting and supporting for her. She has been trying to increase her activity, does have some right knee discomfort, but overall has no significant complaints. Past Medical History: Original diagnosis was in 01/2017, with neoadjuvant TC and left lumpectomy 03/30/2017. She is also had adjuvant left breast at radiation therapy, completed 07/2017. She had 08/2018 right breast IDC, with a right lumpectomy. With recurrence of her disease 03/2020 on the left.She has had a PET scan showing multiple hilar and perihilar mediastinal nodes, osteopenia, knee replacement on the left, and Port-A-Cath Social History - Living Situation Living arrangement: At home Living Situation: With family Support System: She lives with her daughter on a small farm, her daughter and have 2 children and 2 foster children is quite a busy household. She does enjoy this, she does share Evangelical yovani which she finds quite supportive. She feels like her needs are being met. 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 Medications/Allergies - Medications Home Medications: Ambulatory Orders Medication Instructions Recorded Confirmed Cholecalciferol (Vitamin D3) 10 mcg PO DAILY 05/18/20 09/07/20 [Vitamin D3] Multivitamin [Daily Multiple 1 each PO DAILY 05/18/20 09/07/20 Vitamin] Ondansetron [Ondansetron Odt] 8 mg PO Q8HR PRN 05/18/20 09/07/20 Lidocaine/Prilocain 2.5% Cream 5 applic TOP BID #1 tube 05/21/20 09/07/20 [Emla 2.5% Cream] Senna [Senokot] 1 - 2 tab PO DAILY PRN MDD 6 tabs 06/04/20 09/07/20 polyethylene glycoL 3350 [Miralax] 17 gm PO DAILY MDD titrate to 06/04/20 09/07/20 effect - Allergies Allergies/Adverse Reactions: Allergies Allergy/AdvReac Type Severity Reaction Status Date / Time No Known Drug Allergies Allergy Verified 09/07/20 12:49 Review of Systems - Constitutional Constitutional: reports: Fatigue (persistent), Weight stable (130) - Ears, Nose & Throat Ears, Nose & Throat: reports: Hearing loss, Dry mouth - Respiratory Respiratory: reports: SOB with exertion - Gastrointestinal Gastrointestinal: reports: Early satiety, Good appetite - Musculoskeletal Musculoskeletal: reports: Stiffness, Muscle weakness (has been challenging herself to do more walking) - Integumentary Integumentary: reports: Dryness, Hair changes - Neurological Neurological: reports: General weakness, Memory problems (patient feels this has worsened "discussed chemo brain" no specific confusion) - Psychiatric Psychiatric: reports: Depression, Anxiety - All Other Systems All Other Systems: reports: Reviewed and negative Physical Exam - Vital Signs Temperature: 36.4 C Pulse Rate: 83 Respiratory Rate: 16 Blood Pressure: 119/52 - Physical Exam General Appearance: positive: No acute distress, Alert Eyes Bilateral: positive: Normal inspection ENT: positive: No signs of dehydration Neck: positive: Trachea midline Cardiovascular: positive: Regular rate & rhythm Respiratory: positive: No respiratory distress, Breath sounds nml Abdomen: positive: Non-tender, Soft, Nml bowel sounds Skin: positive: Pallor, Dryness Extremities: positive: No pedal edema Neurologic/Psychiatric: positive: Oriented x3, Mood/affect nml, Weakness, Flat affect Palliative Care - POLST Patient has POLST: No Pain: Pain worsening, Location (right knee), Severity (3/10) Tiredness/Fatigue: Mild (1-3) Drowsiness/Sedation: None Nausea: Mild (1-3) Anorexia: None Dyspnea: None Depression: Mild (1-3) Anxiety: Mild (1-3) Feelings of wellbeing/Perceived Quality of Life: Good, Acceptable, No change Sleep: Sleeps well Constipation: Yes, Managed Performance Status: Patient does note increased fatigue, decreased activity tolerance, but is ambulating more. She does do a dining room [place], but 25 times, reports that her right knee has had some increased discomfort, she had a one-time considered knee replacement. She is able to manage her own ADLs, she does depend on them for transportation though. - Palliative Care Discussion: Patient is quite pragmatic, takes things as they come, denies any serious worries or concerns. She does have her DPOA with [facility] [phone]. She is very passive and differential to the doctors, and trust what they are doing. We did discuss a lot about life review today, her yovani and how it supports her, and continue to build rapport. Results - Lab Results Lab results reviewed: Yes Impression and Recommendations - Palliative Care Impression: This is a very quiet 84 old woman with recurrent metastatic breast cancer, she is currently receiving chemotherapy. She does have some persistent fatigue, feels like she is doing overall well. She has had some weight gain, her constipation issues are currently under control, she is presenting with low symptom burden. Palliative care continue provide support for symptom management, advanced care planning and anticipatory guidance. Recommendations/Counseling Done: 1. Depression. Patient does have fluctuating mood, she is continuing to improve and does identify adequate social support. She is engaging her spiritual community, is hoping with the decreasing restrictions not with the pandemic, they will start episcopalian again soon. Daughter works very hard to keep her engaged, she is starting to do more progressive ambulation. 2. Weight loss. Patient is up to 130, she is doing well at this point in time, denies any need for through their dietary support or counseling. 3. Recurrent metastatic breast cancer, at this point in time does not show evidence of progressive disease. She is tolerating treatment with only some persistent fatigue. 4. Advanced care planning. Patient does feel like she has most of her end-of-life planning and legal issues resolved. She does have her DPOA completed with her daughter Earline as DPOA. Her goals continue to be to focus on the moment, spending time with family, had addressed the continuum of care last time, at this point in time we will continue to follow along every 6 to 8 weeks. 45 minutes with review of labs, scans, exam, [id number], counseling for symptom management and psychological support, and anticipatory guidance
== END 2020-09-14 14:46 | disposition home or self-care (01) ==
LOC: PC 14:45
PROVIDERS: ATTEND Nurse Practitioner Adult Health
DX: Z51.5 Encounter for palliative care (principal); F32.9 Major depressive disorder, single episode, unspecified; C50.919 Malignant neoplasm of unspecified site of unspecified female breast; C77.3 Secondary and unspecified malignant neoplasm of axilla and upper limb lymph nodes; Z79.899 Other long term (current) drug therapy
CPT/HCPCS: 99215

== ENCOUNTER 2020-10-12 14:01 | Outpatient (CLI) | payer MEDICARE, OTHER ==
--- NOTE | 2020-10-12 15:49 | CONSULTATION NOTE ---
Palliative Care Follow Up - Referral Referring Provider: Dr. Victor Hugo Foote Time of Visit: 1400 45 minutes Referral setting: [facility] Referral Reason: Fatigue/LE edema/Met Breast CA - Information Sources Records reviewed: RN notes reviewed, Previous records reviewed History/Review of Systems obtained from: Patient Exam limitations: No limitations - History of Present Illness Update Brief HPI Update: This is a ivan 84-year-old woman who has recurrent triple negative breast cancer, with mets to lymph nodes in left axilla. She is currently getting Abraxane and Atezolizumab, has continued to do fairly well with persistent fatigue, alopecia, and mild numbness to the tips of her finger. She does have some lower extremity edema today, right greater than left. Her lungs are clear, she has no pain. She does have a palpable lymph node in her left axilla if that continues to decrease. Patient has been ambulating, working on progressively increasing her endurance, she is able to do 25 laps around her living room. Her weight is remained stable, she has good appetite, her counts have remained within normal limits. She denies any anxiety or depression. Past Medical History: Original diagnosis 01/2017, with neoadjuvant TC and left lumpectomy 03/2017. She also had left breast radiation, completed 07/2017. 08/2018 had right breast cancer IDC, with right lumpectomy, and recurrence of her disease 03/23/2020 on the left. She had a PET scan showing multiple hilar and perihilar mediastinal nodes, she has osteopenia, knee replacement on the left, and a Port-A-Cath. Social History - Living Situation Living arrangement: At home Living Situation: With family Support System: She lives with her daughter on a small farm, her daughter and have 2 children and 2 foster children, is quite a busy household which she does enjoy. She shares [employer] yovani with her daughter, finds this quite supportive. She feels like her needs are being met. 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 Medications/Allergies - Medications Home Medications: Ambulatory Orders Medication Instructions Recorded Confirmed Cholecalciferol (Vitamin D3) 10 mcg PO DAILY 05/18/20 10/05/20 [Vitamin D3] Multivitamin [Daily Multiple 1 each PO DAILY 05/18/20 10/05/20 Vitamin] Ondansetron [Ondansetron Odt] 8 mg PO Q8HR PRN 05/18/20 10/05/20 Lidocaine/Prilocain 2.5% Cream 5 applic TOP BID #1 tube 05/21/20 10/05/20 [Emla 2.5% Cream] Senna [Senokot] 1 - 2 tab PO DAILY PRN MDD 6 tabs 06/04/20 10/05/20 polyethylene glycoL 3350 [Miralax] 17 gm PO DAILY MDD titrate to 06/04/20 10/05/20 effect - Allergies Allergies/Adverse Reactions: Allergies Allergy/AdvReac Type Severity Reaction Status Date / Time No Known Drug Allergies Allergy Verified 10/05/20 13:29 Review of Systems - Constitutional Constitutional: reports: Fatigue (persistent not worsening), Weight stable (132) - Ears, Nose & Throat Ears, Nose & Throat: reports: Hearing loss, Dry mouth - Cardiovascular Cardiovascular: reports: Decr. exercise tolerance - Respiratory Respiratory: reports: SOB with exertion. denies: Cough, SOB at rest - Gastrointestinal Gastrointestinal: reports: Early satiety, Good appetite - Musculoskeletal Musculoskeletal: reports: Stiffness, Muscle weakness (has been challenging herself to do more walking) - Integumentary Integumentary: reports: Dryness, Hair changes ("duck down") - Neurological Neurological: reports: General weakness, Memory problems (patient feels this has worsened "discussed chemo brain" no specific confusion; mild) - Psychiatric Psychiatric: denies: Depression, Anxiety - Endocrine Endocrine: reports: Intolerance to cold - Hematologic/Lymphatic Hematologic/Lymph: denies: Recurrent infections - All Other Systems All Other Systems: reports: Reviewed and negative Physical Exam - Vital Signs Pulse Rate: 76 Respiratory Rate: 18 Blood Pressure: 112/64 - Physical Exam General Appearance: positive: No acute distress, Alert Eyes Bilateral: positive: Normal inspection ENT: positive: No signs of dehydration. negative: Oral lesions Neck: positive: Trachea midline. negative: Lymphadenopathy (R), Lymphadenopathy (L) Cardiovascular: positive: Regular rate & rhythm Respiratory: positive: No respiratory distress, Breath sounds nml Abdomen: positive: Non-tender, Soft, Nml bowel sounds Skin: positive: Pallor, Dryness Extremities: positive: Pedal edema (new pedal edema; no areas of pain / redness/ warmth; right greater than left; new symptom) Neurologic/Psychiatric: positive: Oriented x3, Mood/affect nml, Weakness, Flat affect Palliative Care - POLST Patient has POLST: No Pain: No pain Tiredness/Fatigue: Moderate (4-6) Drowsiness/Sedation: Moderate (4-6) Nausea: None Anorexia: None Dyspnea: None Depression: None Anxiety: None Feelings of wellbeing/Perceived Quality of Life: Good, Acceptable, No change Sleep: Sleeps well Constipation: Yes, Managed Performance Status: Patient is able to manage her own ADLs, she is ambulatory and is doing exercise with frequent walks. She does not is driving, currently she is not driving. Her daughter does provide transportation as well as meals. - Palliative Care Discussion: Patient is feeling quite positive overall, regarding her treatment, living with her daughter, we did some life review today. Her grandmother lived until 96, she does not believe that this will continue, but does feel like she will have some quality as well as quantity of life. She is very passive and differential, her yovani continues to support her continue to build rapport. Results - Lab Results Lab results reviewed: Yes Impression and Recommendations - Palliative Care Impression: This is a very quiet 84-year-old woman with recurrent metastatic breast cancer, currently receiving chemotherapy. She has persistent fatigue as her biggest symptom, but feels like she is doing well overall. She presents with low symptom burden. Palliative care continue provide support for symptom management, advanced care planning, and anticipatory guidance. Recommendations/Counseling Done: 1. Lower extremity edema. Patient does not present with any acute signs or symptoms of fluid overload, DVT, labs within normal limits. Patient has been instructed to get mild support hose, put on in the a.m. and off in the p.m. She is instructed to notify clinic or myself if increased pain, swelling, or discomfort. We will continue to monitor. 2. Depression. Patient does have some fluctuating mood, she definitely is well engaged in her family and community. She feels like she has adequate social support, she likes to read, continue to focus on things that bring her jennifre and support. She is doing well with her progressive ambulation. 3. Weight loss. She is up to 132, at this point in time she has no symptoms regarding anorexia and does not need further dietary support or counseling. 4. Recurrent metastatic breast cancer, at this point time does not show evidence of progressive disease. She is tolerating treatment with only some persistent fatigue. She is acclimating to her new schedule, and does not present with any anxiety. 5. Advanced care planning. Her goals continue to be focus on living in the moment, she is looking forward to a vacation come December, agreed with patient's low symptom burden, will follow up in 6 to 8 weeks. 45 minutes Review of records, labs, [id number] with physical exam, counseling for support and symptom management as well as anticipatory guidance
== END 2020-10-12 14:02 | disposition home or self-care (01) ==
LOC: PC 14:01
PROVIDERS: ATTEND Nurse Practitioner Adult Health
DX: Z51.5 Encounter for palliative care (principal); C50.912 Malignant neoplasm of unspecified site of left female breast; C50.911 Malignant neoplasm of unspecified site of right female breast; C77.3 Secondary and unspecified malignant neoplasm of axilla and upper limb lymph nodes; Z79.899 Other long term (current) drug therapy
CPT/HCPCS: 99214

== ENCOUNTER 2020-11-15 15:08 | Outpatient (CLI) | payer MEDICARE, OTHER | END 2020-11-15 15:09 | disposition short-term general hospital (02) | LOC: EMS 15:08 | DX: R41.82 Altered mental status, unspecified (principal); R47.81 Slurred speech | CPT/HCPCS: A0425; A0427 ==

== ENCOUNTER 2021-01-01 15:28 | Outpatient (CLI) | payer MEDICARE, OTHER ==
--- NOTE | 2021-01-01 16:26 | XRAY Report ---
PROCEDURE: Hip w/Pelvis 2-3V RT INDICATIONS: PX IN RT HIP TECHNIQUE: AP pelvis with lateral view(s) of the right hip(s). COMPARISON: None. FINDINGS: Bones: Moderate bilateral hip joint osteophytic changes are seen slightly worse on the right side. N o evidence of avascular necrosis of femoral head. There is mild osteopenia. No fractures or dislocati ons. Pelvic ring appears intact. No suspicious bony lesions. Soft tissues: The visualized bowel gas pattern is normal. No suspicious soft tissue calcifications. IMPRESSION: Right worse than left bilateral moderate hip joint osteoarthritis. No pelvic or hip fract ure. No evidence of avascular necrosis. Mild osteopenia. Reviewed by: Lazaro Lynn MD on 01/01/2021 4:25 PM PDT Approved by: Lazaro Lynn MD on 01/01/2021 4:25 PM PDT Station ID: [id number]
== END 2021-01-01 15:29 | disposition home or self-care (01) ==
LOC: DI.S 15:28
PROVIDERS: ATTEND Nurse Practitioner Family
DX: M16.0 Bilateral primary osteoarthritis of hip (principal); M85.88 Other specified disorders of bone density and structure, other site

== ENCOUNTER 2021-01-04 11:15 | Outpatient (CLI) | payer MEDICARE, OTHER ==
--- NOTE | 2021-01-04 17:19 | CONSULTATION NOTE ---
Palliative Care Follow Up - Referral Referring Provider: Dr. 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 She was put on Keppra 500 mg twice daily in the emergency room, she has had a work-up as far as cardiac status, and is put on aspirin 81 mg and atorvastatin 80 mg. This is been somewhat distressing to her and her daughter, as in the context they like minimal medications. The other complicating factor is she had recently gone on a family trip, and sustained a fall resulting in a deep hip contusion on the right. She has had an x-ray that only showed degenerative changes, but she does have pain with weightbearing, and has limited her ambulation as well as her comfort. They are currently using acetaminophen 1000 mg 3 times daily but remains quite painful. She is also having persistent fatigue compounded by her recent travel trip to [place] 12/19-12/29 she very much enjoyed this visiting multiple family members. Patient between her and her have 10 children with 1 son because of an accident. Daughter is concerned with patient's waxing and waning particular around fatigue, she is also noted though patient has some baseline cognitive deficits and memory issues, they have worsened and patient has multiple properties and assess that she needs assistance with paying bills. She reports patient often will ignore these, she does want some help, but this would necessitate a financial power of insurance defense attorney. The daughter is brought a form, unfortunately patient has not reviewed this prior to this and has found this somewhat distressful. She does want assistance and support but was "not expecting this" though daughter reports she had laid this out for her to continue to review. But he she is finding is her mother is not engaging and/forgetting as well as her energy not able to initiate or finish multiple tasks. She is not appear confused, but does appear quite fatigued. Past Medical History: Since original breast cancer diagnosis was 01/2017, received neoadjuvant TC and left lumpectomy 03/2017. Left breast Radiation completed 07/2017. In August 05/2019 had right breast cancer IDC with right lumpectomy and presented with recurrence of disease 03/23/2020 on the left. She had a PET scan showing multiple hilar and perihilar mediastinal nodes, she has osteopenia, knee replacement on the left, and a Port-A-Cath Social History - Living Situation Living arrangement: At home Living Situation: With family Support System: Patient has multiple children, but lives with her daughter Earline [place]. Her daughter and have 2 children and 2 foster children, it is quite chaotic household. They shared Faith yovani, and she finds this quite supportive. She does feel like her needs are being met. 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, her about 7 years ago, they had 10 children in combination Medications/Allergies - Medications Home Medications: Ambulatory Orders Medication Instructions Recorded Confirmed Cholecalciferol (Vitamin D3) 10 mcg PO DAILY 05/18/20 01/05/21 [Vitamin D3] Multivitamin [Daily Multiple 1 each PO DAILY 05/18/20 01/05/21 Vitamin] Aspirin [Aspirin EC] 81 mg PO DAILY 11/22/20 01/05/21 Atorvastatin Calcium [Lipitor] 80 mg PO DAILY PM 11/22/20 01/05/21 Levetiracetam [Keppra] 500 mg PO BID MDD Plan for taper 11/22/20 01/05/21 Acetaminophen [Acetaminophen Extra 1,000 mg PO TID 01/05/21 01/05/21 Strength] polyethylene glycoL 3350 [Miralax] 17 gm PO DAILY 01/05/21 01/05/21 - Allergies Allergies/Adverse Reactions: Allergies Allergy/AdvReac Type Severity Reaction Status Date / Time No Known Drug Allergies Allergy Verified 12/07/20 09:55 Review of Systems - Constitutional Constitutional: reports: Fatigue (worsening and limiting), Weight loss (147) - Eyes Eyes: reports: Vision loss - Ears, Nose & Throat Ears, Nose & Throat: reports: Hearing loss, Dry mouth - Cardiovascular Cardiovascular: reports: Decr. exercise tolerance - Respiratory Respiratory: reports: SOB with exertion. denies: Cough, SOB at rest - Gastrointestinal Gastrointestinal: reports: Constipation, Early satiety, Good appetite - Musculoskeletal Musculoskeletal: reports: Muscle pain (right hip pain), Stiffness, Muscle weakness (has been challenging herself to do more walking) - Integumentary Integumentary: reports: Dryness, Hair changes ("duck down") - Neurological Neurological: reports: General weakness, Memory problems (worsened since dx brain mets/keppra). denies: Headache, Slurred speech - Psychiatric Psychiatric: reports: Depression. denies: Anxiety - Endocrine Endocrine: reports: Intolerance to cold - All Other Systems All Other Systems: reports: Other (more limited related to patient's STM decficits) Physical Exam - Vital Signs Temperature: 36.3 C Pulse Rate: 89 Respiratory Rate: 16 O2 Saturation: 98 Blood Pressure: 109/69 - Physical Exam General Appearance: positive: No acute distress, Lethargic, Cachetic Eyes Bilateral: positive: Normal inspection, No scleral icterus ENT: positive: No signs of dehydration. negative: Oral lesions Neck: positive: Trachea midline. negative: Lymphadenopathy (R), Lymphadenopathy (L) Cardiovascular: positive: Regular rate & rhythm Respiratory: positive: No respiratory distress, Breath sounds nml Abdomen: positive: Non-tender, Soft, Nml bowel sounds Skin: positive: Pallor, Dryness Extremities: positive: No pedal edema Neurologic/Psychiatric: positive: Oriented x3, Weakness, Depressed mood/affect, Flat affect Palliative Care - POLST Patient has POLST: No Pain: Pain worsening, Location (right hip; deep in thigh; worse with standing/walking), Severity (mod/severe) Tiredness/Fatigue: Severe (7-10) Drowsiness/Sedation: Moderate (4-6) Nausea: None Anorexia: Mild (1-3) Dyspnea: Mild (1-3) Depression: Mild (1-3) Anxiety: Mild (1-3) Feelings of wellbeing/Perceived Quality of Life: Fair, Worsening Sleep: Sleeps well Constipation: Yes, Unmanaged Performance Status: Patient has had a decline in functional status, she is trying to build herself up for ambulating again with her rolling walker. With her right hip pain she has been more sedentary, she reports she was able to bathe with only mild assistance she does have a shower chair. She has had persistent fatigue over the last few weeks. - Palliative Care Discussion: Patient is very animated when she describes her visit and being able to see her family. They did do a tour, as a 7 out of 10 of her children. Daughter Earline is appropriately concerned, patient is somewhat slow to respond, has not been taking care of her finances, and does verbalize she would like assistance with this. 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 We did review it to address her concerns, patient did not feel she was clear enough at this point in time and needed more time. Earline is somewhat frustrated in the context patient is not following through on pain pills or taking care of things that are important, patient does have a trust set up so this is not the complexity it is more about the day today. Given the most recent interactions with the emergency room, the need to call 911, did Introduced the POLST form in the context of patient's understanding that she does have a serious illness and "one needs to go sometime". She is not fearful of dying, she is very yovani-based with her Faith support. They have not been able to return in person to her community, but do find it supportive in twice a week Zoom meetings. Results - Lab Results Lab results reviewed: Yes Impression and Recommendations - Palliative Care Impression: This a 85-year-old woman with recurrent metastatic disease of breast cancer, currently receiving chemotherapy. She has known metastatic lymph node and pulmonary mets, now diagnosed with new brain mets and has received radiosurgery about one month ago. Patient has had both cognitive and functional decline, functional decline attributed to recent fall with right hip contusion. Palliative care providing support for pain and symptom management and anticipatory guidance. Recommendations/Counseling Done: 1. Right hip contusion. Patient currently on acetaminophen 1000 mg 3 times daily, which patient does feel is managing. Patient does have CBD ointment, recommended massage CBD ointment into contusion area, as well as apply heating pad to hip 20 minutes on 3 times a day. Reviewed and encouraged to call if needs something stronger as it is impacting her significantly. 2. Generalized weakness. Patient has been more sedentary, functional status was already compromised, encouraged to continue with her daily walks as able. 3. Constipation. Patient presents with constipation, recommended restart MiraLAX at a half capful daily, and add senna concentrate 8.6 mg 1-2 tabs with no bowel movement in 2 days. Patient has not had a bowel movement coming on for days now. Counseling provided regarding goal is a soft BM every day. 4. Fatigue. This is most likely multifactorial, will follow up with Dr. Garcia in radiation oncology, patient was initiated on Keppra originally from ED, suspect no one has revisited this in the context of her disease burden, daughter and patient interested in minimizing medications. Will follow up and see if indicated at this time. Patient also may benefit from decreased dose of atrovastatin, patient did show atherosclerotic calcifications when she received a CT angio. She has also followed up with cardiology, though no changes were made 5. Advanced care planning. Expressed concerns regarding patient's need for assistance managing her financial affairs, patient was feeling somewhat over whelmed in the context of moving forward with this. Reviewed the form with her, as well as daughter's concerns. Will make arrangements for notary if needed next time, if our notary can do financial documents. It is very difficult for them to get her out on a regular basis. Also introduced the POLST in the context of progressive disease and recent emergent ED visit. Jan.[address] Gacria radiology, regarding Keppra 500 mg twice daily. Patient 1 month out from radiosurgery, patient without any history of seizures, was put on Keppra ED. Discussed recommendation to discontinue, follow-up with pharmacy regarding appropriate taper, recommended 250 mg twice daily then one half tab equals 250 mg daily for a week. This was communicated to her family, discussed with her daughter, and instructions sent to her son-in-law who does her medication set up 60 minutes review of records, [facility] records, scans, labs, [id number] with patient and daughter, counseling provided regarding pain and symptom management and anticipatory guidance.
== END 2021-01-04 11:16 | disposition home or self-care (01) ==
LOC: PC 11:15
PROVIDERS: ATTEND Nurse Practitioner Adult Health
DX: Z51.5 Encounter for palliative care (principal); C50.919 Malignant neoplasm of unspecified site of unspecified female breast; C77.9 Secondary and unspecified malignant neoplasm of lymph node, unspecified; C78.00 Secondary malignant neoplasm of unspecified lung; C79.31 Secondary malignant neoplasm of brain; R53.83 Other fatigue; R53.1 Weakness; R41.81 Age-related cognitive decline; H54.7 Unspecified visual loss; H91.90 Unspecified hearing loss, unspecified ear; K59.00 Constipation, unspecified; S70.01XA Contusion of right hip, initial encounter; Z79.899 Other long term (current) drug therapy; X58.XXXA Exposure to other specified factors, initial encounter
CPT/HCPCS: 99215

== ENCOUNTER 2021-02-08 09:45 | Outpatient (CLI) | payer MEDICARE, OTHER ==
--- NOTE | 2021-02-08 16:16 | CONSULTATION NOTE ---
Palliative Care Follow Up - Referral Referring Provider: Dr. 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 She did receive CyberKnife, and is almost completed her Keppra taper. She was having worsening cognitive decline, and daughter does feel like she is much more clear currently. Patient had to change from Abraxane to paclitaxel, due to his shortage, patient perceives that she has had severe constipation with this change and is very unc omfortable with no BM for 3 days, though did pass a small amount of hard stool by disimpaction last night. She continues to lose weight, continues with persistent fatigue, she is with some functional decline using rolling walker, this is more attributed to her fall though when she was on vacation in December, with right hip pain. For constipation they did try MiraLAX increasing it to 3 times daily yesterday, with no results, patient reports hard stool impacted in her lower rectum. She is quite distressed by this, having abdominal pain and cramping. Past Medical History: Breast cancer diagnosis 01/2017, received neoadjuvant TC and left lumpectomy 03/2017. Left breast radiation completed 07/19. In had right breast cancer IDC with right lumpectomy and presented with recurrence of disease 1120 on left. She had a PET scan showing multiple hilar and perihilar mediastinal nodes, has osteopenia, knee replacement on left, and Port-A-Cath. Social History - Living Situation Living arrangement: At home Living Situation: With family Support System: Patient lives with her daughter Earline, who is most aligned with patient's goals of care and share Jehov[employer] Witness yovani. Patient has 10 children in combination with her , who about 7 years ago. Earline her daughter and have 2 children and 2 foster children, it is a bit of a chaotic household, but patient does enjoy being there. 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 Medications/Allergies - Medications Home Medications: Ambulatory Orders Medication Instructions Recorded Confirmed Cholecalciferol (Vitamin D3) 10 mcg PO DAILY 05/18/20 02/08/21 [Vitamin D3] Multivitamin [Daily Multiple 1 each PO DAILY 05/18/20 02/08/21 Vitamin] Aspirin [Aspirin EC] 81 mg PO DAILY 11/22/20 02/08/21 Atorvastatin Calcium [Lipitor] 80 mg PO DAILY PM 11/22/20 02/08/21 Levetiracetam [Keppra] 250 mg PO DAILY MDD Plan for taper 11/22/20 02/08/21 Acetaminophen [Acetaminophen Extra 1,000 mg PO TID PRN 01/05/21 02/01/21 Strength] polyethylene glycoL 3350 [Miralax] 17 gm PO DAILY 01/05/21 02/08/21 Senna [Senokot] 2 tab PO DAILY MDD 6 tabs 02/08/21 02/08/21 - Allergies Allergies/Adverse Reactions: Allergies Allergy/AdvReac Type Severity Reaction Status Date / Time No Known Drug Allergies Allergy Verified 12/07/20 09:55 Review of Systems - Constitutional Constitutional: reports: Fatigue (remains persistent), Weight loss (553.4) - Eyes Eyes: reports: Vision loss - Ears, Nose & Throat Ears, Nose & Throat: reports: Hearing loss, Dry mouth - Cardiovascular Cardiovascular: reports: Decr. exercise tolerance - Respiratory Respiratory: reports: SOB with exertion. denies: Cough, SOB at rest - Gastrointestinal Gastrointestinal: reports: Constipation (see HPI), Early satiety, Good appetite - Musculoskeletal Musculoskeletal: reports: Muscle pain, Stiffness, Muscle weakness, Assistive devices (using rolling walker; no further falls) - Integumentary Integumentary: reports: Dryness, Hair changes ("duck down") - Neurological Neurological: reports: General weakness, Memory problems (continues to be challenging). denies: Headache, Slurred speech - Psychiatric Psychiatric: reports: Depression - Endocrine Endocrine: reports: Intolerance to cold - Hematologic/Lymphatic Hematologic/Lymph: reports: Anemia (11.8) - All Other Systems All Other Systems: reports: Other (limited ROS w/STM issues) Physical Exam - Vital Signs Temperature: 36.3 C Pulse Rate: 77 Respiratory Rate: 16 Blood Pressure: 102/50 - Physical Exam General Appearance: positive: No acute distress, Cachetic Eyes Bilateral: positive: Normal inspection, No scleral icterus Neck: positive: Trachea midline Respiratory: positive: No respiratory distress Abdomen: positive: Tenderness Skin: positive: Pallor Extremities: positive: No pedal edema Neurologic/Psychiatric: positive: Oriented x3, Weakness, Depressed mood/affect, Flat affect Palliative Care - POLST Patient has POLST: No POLST Status: Full Code Pain: Pain improved, Location (right hip; using APAP only at bedtime) Constipation: Yes, Unmanaged, Comment (attributed to chemotherapy) Performance Status: Patient continues with lower extremity weakness, is using walking Rollator at home. Does try and still do her labs. She does have standby assistance for bathing, does use wheelchair for long distances and transfers. - Palliative Care Discussion: Patient continues to take things in stride, reports still has good quality of life though is somewhat distracted with her constipation. She feels significant impact by Covid, as she is isolated with her family. She would like to be more social and see more people. Results - Lab Results Lab results reviewed: Yes Impression and Recommendations - Palliative Care Impression: This is a 85-year-old woman with recurrent metastatic triple negative breast cancer, currently receiving treatment. She does have known metastatic lymph and pulmonary mets, recently diagnosed with brain mets and received radiosurgery about 2 months ago. Patient has had both cognitive and functional decline, though cognitive functioning has improved as Keppra has been tapered off. She did have a fall with a right hip contusion, this continues to improve though now is mostly ambulatory with a rolling walker. Palliative care providing support for pain and symptom management and anticipatory guidance. Recommendations/Counseling Done: 1. Right hip contusion. Patiently has been able to decrease her acetaminophen use to about 1 time daily, does find heating pad to be the most effective relief. She is using her walker and Rollator, no further falls. Feels like she is improving. 2. Constipation. Patient presents with worsening constipation, attributes it to the change in her chemotherapy. Recommended a suppository or enema given patient describing impaction, with Vaseline or [place] jelly to help pass impacted stool. Today instructed to take 2 tabs of senna every 4 hours until cleared out, and restart her bowel program at MiraLAX 1 capful daily and senna 2 tabs daily. She is also encouraged to push fluids as this is difficult for her to meet her fluid needs. 3. Fatigue. This is multifactorial, she continues to lose weight, and has had both cognitive and functional decline. We will continue to monitor. 4. Advanced care planning. Patient still needs a further revisit to her POLST and advanced care planning documents. Patient very much distracted with her current issue around constipation, will address at next visit. 45 minutes with review of oncology records, counseling regarding symptom management, psychosocial support provided and anticipatory guidance.
== END 2021-02-08 09:46 | disposition home or self-care (01) ==
LOC: PC 09:45
PROVIDERS: ATTEND Nurse Practitioner Adult Health
DX: Z51.5 Encounter for palliative care (principal); C50.919 Malignant neoplasm of unspecified site of unspecified female breast; C77.1 Secondary and unspecified malignant neoplasm of intrathoracic lymph nodes; C79.31 Secondary malignant neoplasm of brain; C78.00 Secondary malignant neoplasm of unspecified lung; K59.03 Drug induced constipation; T45.1X5A Adverse effect of antineoplastic and immunosuppressive drugs, initial encounter; R53.83 Other fatigue; S70.01XA Contusion of right hip, initial encounter; X58.XXXA Exposure to other specified factors, initial encounter; Z91.81 History of falling; M85.80 Other specified disorders of bone density and structure, unspecified site; H91.90 Unspecified hearing loss, unspecified ear; Z79.899 Other long term (current) drug therapy; Z79.82 Long term (current) use of aspirin
CPT/HCPCS: 99215

== ENCOUNTER 2021-03-12 15:45 | Outpatient (CLI) | payer MEDICARE, OTHER ==
--- NOTE | 2021-03-12 18:03 | CONSULTATION NOTE ---
Palliative Care Follow Up - Referral Referring Provider: Dr. 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 She did receive CyberKnife for brain mets discovered in 12/22, and has been receiving Abraxane at reduced dose and atezolizumab. She did have her last treatment held on 03/01 for elevated liver enzymes of AST of 182, ALT 149, alk phos 393. Patient has been declining functionally and cognitively since December, and has had continued weight loss. She has mostly been sedentary except to get out of the house for chemo, and with her decline was unable to receive treatment 03/05 had canceled her appointment. In review with daughters and granddaughters, patient has become more weak, she is very cachectic and frail, has had decreased intake, worsening trouble with constipation, and escalating pain in her right hip. For the last 10 days, she is essentially been bedbound or couch bound, ambulating only short distances, and taking in very little fluids. They have been using intermittent tramadol 50 mg for right hip pain, she does have some increased hyper analgesia with touch. She has only been taking sips and bites since the weekend, and presents a day is quite lethargic, disoriented, and taking only sips. She is not in any distress, he has been able to take the tramadol for her pain, but has been incontinent of both bowel and bladder today, and somewhat resistant to care. She does not appear to have any understanding into her current decline, after family meeting, discussion around goals of care, agreement was made to allow natural and have patient at home. Unfortunately hospice is not available until this upcoming Thursday, for [facility],and [facility] [place] future. Past Medical History: Breast cancer diagnosis 01/2017, received neoadjuvant TC and left lumpectomy 1117. Left breast radiation completed 07/19. In 08/20 had breast cancer, IDC with right lumpectomy and presented with recurrence of disease 03/23 on left. She had a PET scan showing multiple hilar and perihilar mediastinal nodes, has osteopenia, knee replacement on left, Port-A-Cath placement, and brain mets 12/22 Social History - Living Situation Living arrangement: At home Living Situation: With family Support System: She lives with her daughter Earline, who is most aligned with patient's goals of care and share their Jehovah witness yovani. Patient has 10 children in combination with her who about 7 years ago. Earline and her have 2 children and 2 foster children, patient has described it as a chaotic household, patient has enjoyed being there. 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 Medications/Allergies - Medications Home Medications: Ambulatory Orders Medication Instructions Recorded Confirmed Multivitamin [Daily Multiple 1 each PO DAILY 05/18/20 03/12/21 Vitamin] polyethylene glycoL 3350 [Miralax] 17 gm PO DAILY 01/05/21 03/12/21 Senna [Senokot] 2 tab PO DAILY MDD 6 tabs 02/08/21 03/12/21 traMADol [Ultram] 50 mg PO Q8HR PRN #40 tablet 03/01/21 03/12/21 Haloperidol Oral Soln [Haldol Oral 0.25 ml PO Q4HR PRN 03/12/21 03/12/21 Soln] Morphine Oral Soln [Roxanol] 5 mg PO Q4HR PRN 03/12/21 03/12/21 - Allergies Allergies/Adverse Reactions: Allergies Allergy/AdvReac Type Severity Reaction Status Date / Time No Known Drug Allergies Allergy Verified 12/07/20 09:55 Review of Systems - Constitutional Constitutional: reports: Fatigue (worsening), Malaise, Weakness, Poor appetite, Weight loss (lost 7 pounds over last month; 50.48 kg) - Eyes Eyes: reports: Vision loss - Ears, Nose & Throat Ears, Nose & Throat: reports: Hearing loss, Dry mouth - Cardiovascular Cardiovascular: reports: Decr. exercise tolerance - Respiratory Respiratory: reports: SOB with exertion. denies: Cough, SOB at rest - Gastrointestinal Gastrointestinal: reports: Constipation (still struggling with constipation; small bm inc. today after one week), Poor appetite (min intake but bites/sips today) - Genitourinary Genitourinary: reports: Incontinence (unrine and stool) - Musculoskeletal Musculoskeletal: reports: Muscle pain, Stiffness, Muscle weakness, Transfer issues (max assist for bed mobility; transfer to w/c; has been bedbound today;) - Integumentary Integumentary: reports: Dryness, Hair changes ("duck down") - Neurological Neurological: reports: General weakness, Memory problems (confused; she thinks she is at her mother's house; recognizes family on and off since w/e). denies: Headache, Seizures - Psychiatric Psychiatric: reports: Hallucinations - Endocrine Endocrine: reports: Intolerance to cold - Hematologic/Lymphatic Hematologic/Lymph: reports: Anemia (11.6) - All Other Systems All Other Systems: reports: Other (limited ROS with lethargy/ams) Physical Exam - Vital Signs Temperature: 97.3 C Pulse Rate: 104 Respiratory Rate: 16 O2 Saturation: 89 Blood Pressure: 102/64 - Physical Exam General Appearance: positive: No acute distress, Lethargic, Cachetic Eyes Bilateral: positive: Normal inspection, No scleral icterus ENT: positive: Dry mucous membranes Neck: positive: Trachea midline Cardiovascular: positive: Tachycardia Respiratory: positive: No respiratory distress, Diminished in bases, Other (shallow breathing). negative: Wheezes, Rales, Rhonchi Abdomen: positive: Abnml bowel sounds (min. BS), Other (sunken/cachetic) Skin: positive: Pallor, Dryness, Pressure wound (right ear stage I) Extremities: positive: No pedal edema Neurologic/Psychiatric: positive: Disoriented to place, Disoriented to time, Weakness, Depressed mood/affect, Flat affect, Other (very weak voice) Palliative Care - POLST Patient has POLST: Yes POLST Status: DNR, Comfort Measures (completed at time of visit) Pain: Pain worsening (per family observation; right thigh/hip), Comment (using intermittent tramadol) Feelings of wellbeing/Perceived Quality of Life: Poor, Worsening Sleep: Other (sleeping most of the time) Constipation: Yes, Unmanaged, Comment (small amount of stool; no bm up to a week prior; decreased intake) Performance Status: In review of patient's declining status, patient has been much more sedentary, mostly spending time in bed or on the couch. Has not been ambulating other than to the bathroom. Over the last several days since the weekend, she is mostly sleeping, needing maximum assist for any kind of transfers, did insist on going to the bathroom yesterday, but was almost a full lift. 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 She has been incontinent today. She needs assist with bed mobility, her daughter had to feed her the few bites she took, denies that she has been choking though has had minimal intake over several days. - Palliative Care Discussion: Patient unable to participate in any decision-making, she is quite lethargic, does seem to recognize me, holds my hand. Denies any distress, has no insight into her current condition or decline. Met in kitchen with daughter Earline and her 2 granddaughters, obviously very tearful and surprised about her decline. Though are able to recognize that she has been deteriorating particularly since December, with declining functional and cognitive status. Has only been up and out to go to her chemo treatments.We did discuss 2 options, could go to the emergency room and possible hospitalization for evaluation of her current status, they are fearful though that she will be more confused and uncomfortable, and recognize that she has been declining, worsening quality of life, and given goals of care, will keep her at home. They are somewhat overwhelmed, unfortunately hospice is not available. We did complete the POLST, Earline is the DPOA, for DN AR/DNI and comfort measures. Did make a hospice referral, they are willing to send a hospital bed and oxygen tomorrow, counseling provided regarding how to transition patient. We also discussed if patient passed before hospice admit, they were to call 911 for pronouncement and meet them at the door with the POLST and let them know its unexpected . Counseling provided regarding anticipatory guidance of patient's continued decline, why we do not provide IV fluids at this point in transition, as well as expected signs and symptoms of continued decline. Did provide hard choices for loving people, they are quite anxious appropriately, but wanting to do the right thing by keeping her at home. They do have a strong yovani, she is a Yarsani. But obviously family is quite rattled, but decision was made to transition to comfort care and hospice admit Results - Lab Results Lab results reviewed: Yes Impression and Recommendations - Palliative Care Impression: This is an 85-year-old woman with known recurrent metastatic triple negative breast cancer, with metastatic lymph pulmonary mets, recently diagnosed with brain mets. Patient has had continued functional and cognitive decline, more acutely over the last several weeks. Patient is quite cachectic, does appear comfortable and in no distress. Family meeting in the context of goals of care, decision has been made to transition to comfort focused care and hospice referral. Unfortunately neither hospice is able to admit her, [facility] has first admission available on Thursday, will admit if opening sooner.Palliative care providing support for end-of-life care, counseling regarding anticipatory guidance, completion of POLST, and hospice referral Recommendations/Counseling Done: 1. Dehydration. This is multifactorial, discussed this is in the context of her transition to end-of-life and may be reflective of more of acute process. Instructed not to force fluids, feeding for comfort only given goals of care. Counseling provided regarding use of fluids/IVs at end-of-life, adding more to distress then providing relief. 2. AMS. Patient does appear dehydrated, has had ongoing functional and cognitive decline, more acutely over the last several days. Patient does not appear in any kind of distress. Did order Haldol 2 mg per mill at 0.25 mils every 4 hours for any signs or symptoms of agitation. 3. Acute on chronic pain. Patient had been improving with her right hip pain, has been using tramadol intermittently but having more difficulty swallowing. We will go ahead and transition over to Roxanol, instructed on 0.25 mils/5 mg every 4 hours as needed, instructed to premedicate for any kind of transition such as bed transfers or bathing. Rx sent to [facility]. They will use tramadol in the meantime. 4. Constipation. Unfortunately patient is not able currently to take any bowel meds, had been taking some MiraLAX. She was incontinent of stool today. At this point in time her abdomen is soft and flat, may need a suppository, can check in 2 days and return visit. 5. Advanced care planning. Family meeting to define goals of care, patient's quality life has been deteriorating, is quite cachectic, functional and cognitive decline, recurrent dehydration, and sedentary status. Patient does demonstrate transition signs and symptoms of progressive decline, given patient's quality of life will not return to previous level prebrain mets, discussion was made to focus on comfort. POLST was completed with DN AR/DNI and comfort meds. Referral to [facility] hospice, they will send hospital bed and oxygen tomorrow. Comfort medications of morphine and Haldol ordered with instructions written. Instructions given if patient were to pass prior to hospice admit. They do have arrangements to [facility] for burial. 75 minutes with greater than 50% of this done in counseling regarding goals of care, decision to transition to comfort care include coordination of care with hospice, ordering of medications, anticipatory guidance and teaching to family. We will continue to provide support until hospice transition
== END 2021-03-12 15:46 | disposition home or self-care (01) ==
LOC: PC 15:45
PROVIDERS: ATTEND Nurse Practitioner Adult Health
DX: Z51.5 Encounter for palliative care (principal); C50.912 Malignant neoplasm of unspecified site of left female breast; C77.1 Secondary and unspecified malignant neoplasm of intrathoracic lymph nodes; C79.31 Secondary malignant neoplasm of brain; C78.00 Secondary malignant neoplasm of unspecified lung; Z66 Do not resuscitate; R53.83 Other fatigue; E86.0 Dehydration; R41.82 Altered mental status, unspecified; M25.551 Pain in right hip; K59.00 Constipation, unspecified; R64 Cachexia; Z85.3 Personal history of malignant neoplasm of breast
CPT/HCPCS: 99350